=== PATIENT | male | born 1990 | race Caucasian/White ===

== ENCOUNTER → 2016-10-15 | Outpatient (CLI) | payer BC ==
--- NOTE | 2016-10-16 10:05 | CPEEG ---
[f rep st] ELECTROENCEPHALOGRAM 4-HOUR VIDEO EEG DATE OF STUDY: 10/15/2016 DATE OF INTERPRETATION: 10/15/2016 INTERPRETATION: This 4-hour video EEG recording is normal. There were no potentially epileptogenic abnormalities present during the awake or sleep recordings. During the video EEG monitoring session, the patient did not have any clinical events. REPORT: This 4-hour video EEG contains 10 Hz alpha activity to the posterior head regions. There was no abnormal activation at rest, during photic stimulation, or hyperventilation. The patient did bring a book to try to provoke a typical event of facial myoclonia. There was no event noted in the technologist's comments. The patient became drowsy and fell into sleep during the study. There was no abnormal activation during drowsiness, sleep, or during times of arousal. The patient did have some gamma frequency (40 Hz) activity noted over the frontocentral head regions during drowsiness and sleep. This is of no clinical significance. The patient did not have any clinical events during the video EEG monitoring session. /[id number]/MODL MTDD
== END ==
LOC: FCPNEURO 09:09
PROVIDERS: ATTEND Psychiatry & Neurology Neurology
DX: G25.3 Myoclonus (principal)